=== PATIENT | female | born 1960 | race Asian ===

== ENCOUNTER 2016-05-18 17:54 | Emergency (ER) | payer MEDICAID ==
[~2016-05-18] VITALS: Ht 152.4 cm; Wt 60.5 kg
[2016-05-18 19:28] VITALS: BP 165/85
[2016-05-18 19:43] LABS: UA SPECIFIC GRAVITY <=1.005 (1.005-1.035); microscopic required? YES; urine erythrocyte 3+ (NEGATIVE)
== END 2016-05-18 19:28 | disposition home or self-care (01) ==
LOC: ED 17:54
PROVIDERS: Emergency Medicine
DX: N30.90 Cystitis, unspecified without hematuria (principal); I10 Essential (primary) hypertension; Z79.899 Other long term (current) drug therapy

== ENCOUNTER 2017-03-27 19:36 | Emergency (ER) | payer MEDICAID ==
[2017-03-27 20:48] VITALS: BP 155/91
== END 2017-03-27 20:48 | disposition home or self-care (01) ==
LOC: ED 19:36
DX: N39.0 Urinary tract infection, site not specified (principal); I10 Essential (primary) hypertension; E11.9 Type 2 diabetes mellitus without complications